=== PATIENT | male | born 1980 | race Caucasian/White ===

== ENCOUNTER 2023-04-27 05:55 | Emergency (ER) | payer MEDICAID, SELFPAY ==
[2023-04-27 06:02] VITALS: PULSE 74; RESP 18; TEMP 36.7; O2SAT 97; BMI 31.9
--- NOTE | 2023-04-27 06:11 | W.ED.ANXIETY ---
HPI - Anxiety General: Chief Complaint: Anxiety Stated Complaint: Anxiety\Cant Sleep\Dizzy Time Seen by Provider: 04/27/23 06:09 Source: patient Mode of arrival: ambulatory History of Present Illness: 42-year-old male presents to the emergency room complaining of anxiety. He was recently started on atenolol buspirone and fluoxetine 2 weeks ago. He states he has been taking those medications and feels like they are not working. He says he cannot sleep. He denies any suicidal or homicidal intent initially. Patient declines to give any specifics as to what is causing his anxiety. MD complaint: anxiety Onset (ago): week(s) History of similar episodes: Yes Provoking factors: other (Patient will not disclose) Relieving factors: nothing Associated symptoms: Reports other (Unable to sleep); Deny anorexia, chest pain, chills, confusion, diaphoresis, fever(s), headache(s), malaise, nausea, palpitations, short of breath, syncope, vomiting or weakness Review of Systems Const: Denies: fever(s), chills, malaise or diaphoresis Card: Denies: chest pain, palpitations or syncope Resp: Denies: dyspnea, productive cough or non-productive cough GI: Denies: abdominal pain, nausea or vomiting : Denies: flank pain, dysuria, urinary frequency or urinary urgency Musc: Denies: neck pain or back pain Skin/Breast: Denies: rash or pruritus Neuro: Denies: headache(s) or confusion Physical Exam Const: GENERAL APPEARANCE: comfortable ORIENTATION/CONSCIOUSNESS: Yes awake, Yes oriented to person, Yes oriented to place and Yes oriented to time HENMT: COMMON NORMALS: normocephalic, atraumatic and hearing grossly normal bilaterally HEAD & SCALP: normocephalic and atraumatic Resp: COMMON NORMALS: normal respiratory effort, No retractions, No use of accessory muscles and clear to auscultation bilaterally AUSCULTATION: clear to auscultation bilaterally Cardio: COMMON NORMALS: regular rate, regular rhythm and No murmurs present (Cardio) RATE: regular rate RHYTHM: regular rhythm GI: COMMON NORMALS: Soft to palpation and No hepatosplenomegaly present AUSCULTATION: Yes normoactive bowel sounds PALPATION: Yes Soft to palpation, No Tenderness to palpation present (GI), No Guarding due to palpation present (GI) and Yes No hepatosplenomegaly present Extremity: COMMON NORMALS: normal to inspection, capillary refill normal, no clubbing, cyanosis or edema, no calf tenderness and no pedal edema Neuro: SENSORIUM/ORIENTATION: Yes oriented to person, Yes oriented to place and Yes oriented to time Skin: COMMON NORMALS: no rashes or lesions noted GENERAL SKIN EXAM: no rashes or lesions noted Course Vital Signs: Vital signs: Vital Signs Temperature 98.1 F 04/27/23 06:02 Pulse Rate 68 04/27/23 06:42 Respiratory Rate 16 04/27/23 06:42 Blood Pressure 161/91 04/27/23 06:42 Pulse Oximetry 95 04/27/23 06:42 Oxygen Delivery Me thod Room Air 04/27/23 06:02 MDM - Anxiety Medical Decision Making Patient declines to disclose what is triggering his anxiety just simply refers to himself being as stressed out and not being able to sleep. Through the course of the conversation he admits he has been seen at other local hospitals but felt like they did not give him the medications he needed. I advised him we can give him a few days of something that would help him with anxiety in the short-term and help him with sleep he wanted to specifically know what it was when I told him it would be hydroxyzine he stated he is allergic but could not identify what reaction he had to it. To the course of the conversation he admitted he had taken hydroxyzine recently and he felt like it did not work. He did not have any reaction at that time. We had made written plans to discharge him home with Abilify 2 mg nightly to augment his current medications to continue the current medications have him establish with [facility] [place] or follow-up with the crisis unit later today. Patient states he wants to be admitted to the psychiatry unit so that he can be given medications that would knock him out so that he could sleep. Reviewed with the patient he did not meet criteria for admission. After we have printed his discharge paperwork patient now states he is suicidal. He has no specific plan or ideation. He declines to recognize the fact that earlier he had denied being suicidal. Discussed with Dr. Garcia. He does not feel patient needs to be admitted given the recent history. Urine drug screen is positive for benzodiazepines when discussed with the patient he admits he is recently been on Xanax, he states he has not had any for [address] Garcia does not feel that the patient needs to be admitted at this point and recommends instead of Abilify that we give him doxepin 50 mg nightly. Also recommend establishing with [facility] [place] or following up at the crisis stabilization unit if needed. His other option would be to follow-up with his primary care doctor for further medication adjustments. Medical Records I reviewed the patient's medical records. Lab Data I reviewed the patient's lab results. 04/27/23 06:48 04/27/23 07:21 Laboratory Results WBC 12.7 10^3/uL (4.0-10.0) H 04/27/23 06:48 RBC 5.39 10^6/uL (4.1-5.3) H 04/27/23 06:48 Hgb 17.2 g/dL (11.7-16.6) H 04/27/23 06:48 Hct 50.6 % (42.0-52.0) 04/27/23 06:48 MCV 93.9 fl (80-94) 04/27/23 06:48 MCH 31.9 pg (28.0-34.0) 04/27/23 06:48 MCHC 34.0 g/dL (30.0-36.0) 04/27/23 06:48 RDW 12.9 % (12.1-15.1) 04/27/23 06:48 Plt Count 178 10^3/cmm (130-400) 04/27/23 06:48 MPV 11.7 fL (7.4-10.4) H 04/27/23 06:48 Neut % (Auto) 83.0 % 04/27/23 06:48 Lymph % (Auto) 10.6 % 04/27/23 06:48 Love % (Auto) 4.5 % 04/27/23 06:48 Eos % (Auto) 0.6 % 04/27/23 06:48 Baso % (Auto) 0.7 % 04/27/23 06:48 Neut # (Auto) 10.52 10^3/uL (1.8-7.7) H 04/27/23 06:48 Lymph # (Auto) 1.3 10^3/uL (0.8-4.8) 04/27/23 06:48 Love # (Auto) 0.6 10^3/uL (0.2-0.9) 04/27/23 06:48 Eos # (Auto) 0.1 10^3/uL (0.0-0.8) 04/27/23 06:48 Baso # (Auto) 0.1 10^3/uL (0.0-0.1) 04/27/23 06:48 Nucleated RBC % (auto) 0 % 04/27/23 06:48 Nucleated RBCs # 0.0 /100WBC 04/27/23 06:48 Sodium Cancelled 04/27/23 06:48 Potassium Cancelled 04/27/23 06:48 Chloride Cancelled 04/27/23 06:48 Carbon Dioxide Cancelled 04/27/23 06:48 Anion Gap Cancelled 04/27/23 06:48 BUN Cancelled 04/27/23 06:48 Creatinine Cancelled 04/27/23 06:48 GFR Calculation Cancelled 04/27/23 06:48 Glucose Cancelled 04/27/23 06:48 Calculated Osmolality Cancelled 04/27/23 06:48 Calcium Cancelled 04/27/23 06:48 Total Bilirubin Cancelled 04/27/23 06:48 AST Cancelled 04/27/23 06:48 ALT Cancelled 04/27/23 06:48 Alkaline Phosphatase Cancelled 04/27/23 06:48 Total Protein Cancelled 04/27/23 06:48 Albumin Cancelled 04/27/23 06:48 Globulin Cancelled 04/27/23 06:48 Urine Color Dark yellow (Yellow) 04/27/23 06:41 Urine Appearance Clear (CLEAR) 04/27/23 06:41 Urine pH 6 (5-7) 04/27/23 06:41 Ur Specific [place] 1.010 (1.005-1.030) 04/27/23 06:41 Urine Protein Neg (Negative) 04/27/23 06:41 Urine Glucose (UA) Norm (Normal) 04/27/23 06:41 Urine Ketones Negative (Negative) 04/27/23 06:41 Urine Blood 2+ (Negative) H 04/27/23 06:41 Urine Nitrate Negative (Negative) 04/27/23 06:41 Urine Bilirubin Neg (Negative) 04/27/23 06:41 Urine Urobilinogen Norm mg/dL (Negative) 04/27/23 06:41 Ur Leukocyte Esterase Negative (Negative) 04/27/23 06:41 Urine RBC 0-4 /hpf (0-2) H 04/27/23 06:41 Urine WBC 0-4 /hpf (0-5) H 04/27/23 06:41 Ur Squamous Epith Cells 0-4 /hpf (0-5) H 04/27/23 06:41 Amorphous Sediment Not Reportable 04/27/23 06:41 Urine Bacteria Trace /hpf (NONE) 04/27/23 06:41 Urine Mucus None /hpf 04/27/23 06:41 Urine Yeast Trace /hpf 04/27/23 06:41 Urine Opiates Screen Negative ng/mL (Negative) 04/27/23 06:41 Ur Barbiturates Screen Negative ng/mL (Negative) 04/27/23 06:41 Ur Phencyclidine Scrn Negative ng/mL (Negative) 04/27/23 06:41 Ur Amphetamines Screen Negative ng/mL (Negative) 04/27/23 06:41 U Benzodiazepines Scrn Positive ng/mL (Negative) H 04/27/23 06:41 Urine Cocaine Screen Negative ng/mL (Negative) 04/27/23 06:41 U Marijuana (THC) Screen Positive ng/mL (Negative) H 04/27/23 06:41 Ethyl Alcohol Cancelled 04/27/23 06:48 Discharge Plan Discharge Patient Disposition: Home Clinical Impression: Generalized anxiety disorder Condition: Stable Prescriptions: New doxepin 50 mg capsule 50 mg PO BEDTIME Qty: 10 0RF No Action buspirone 5 mg tablet atenolol 50 mg tablet fluoxetine 20 mg capsule Discharge Orders: Discharge ED (Routine); Ordered 04/27/23 Ordered By: Tad aRmirez Discharge Diet: Usual diet Discharge Activity: Increase activity as tolerated Patient Instructions: Opioid Safety, Pain Management Activity Restrictions/Additional Instructions: Continue to take the previous prescribed medications you can take the Abilify 2 mg at at bedtime along with them. This medicine can make you drowsy at times. Strongly recommend you either establish with behavioral health clinic or follow-up with your primary care doctor for long-term management. You can go to the crisis stabilization unit later today if you wish. Coding Level of Care Code ED [employer] for Kimberly Damon
--- NOTE | 2023-04-27 06:37 | PC.NURSE ---
Patient was ready for discharge, upon giving d/c papers patient stated he is having thoughts of hurting others. Patient states he is afraid he will hurt others, does not feel that the doctors are not listening to him.
[2023-04-27 06:42] VITALS: BP 161/91; PULSE 68; RESP 16; O2SAT 95
[2023-04-27 06:58] LABS: Basophils # 0.1 10^3/uL (0.0-0.1); Basophils % 0.7 %; Eosinophils # 0.1 10^3/uL (0.0-0.8); Eosinophils % 0.6 %; Hematocrit 50.6 % (42.0-52.0); Hemoglobin 17.2 g/dL (11.7-16.6); Lymphocytes # 1.3 10^3/uL (0.8-4.8); Lymphocytes % 10.6 %; Mean Corpuscular Hemoglobin 31.9 pg (28.0-34.0); Mean Corpuscular Volume 93.9 fl (80-94); Mean Platelet Volume 11.7 fL (7.4-10.4); Monocytes # 0.6 10^3/uL (0.2-0.9); Monocytes % 4.5 %; Neutrophils # 10.52 10^3/uL (1.8-7.7); Nucleated Red Blood Cells % 0 %; Platelet Count 178 10^3/cmm (130-400); Red Blood Count 5.39 10^6/uL (4.1-5.3); Red Cell Distribution Width 12.9 % (12.1-15.1); White Blood Count 12.7 10^3/uL (4.0-10.0)
[2023-04-27 07:08] LABS: Amphetamines Screen Urine Negative (Negative); Barbiturates Screen Urine Negative (Negative); Benzodiazepines Screen Urine Positive (Negative); Cocaine Screen Urine Negative (Negative); Opiate Screen Urine Negative (Negative); PCP Screen Urine Negative (Negative); THC Screen Urine Positive (Negative)
[2023-04-27 07:11] LABS: Add Urine Microscopic? YES; Bilirubin Urine Neg (Negative); Blood Urine 2+ (Negative); Glucose Urine UA Norm (Normal); Ketones Urine Negative (Negative); Leukocyte Esterase Urine Negative (Negative); Nitrate Urine Negative (Negative); Protein Urine Neg (Negative); Urine Appearance Clear (CLEAR); Urine Color Dark Yellow (Yellow); Urobilinogen Urine Norm (Negative); pH Urine 6 (5-7)
[2023-04-27 07:19] LABS: Bacteria Urine TRACE /hpf; RBC Urine 0-4 /hpf (0-2); Squamous Epithelial Cell Urine 0-4 /hpf (0-5); WBC Urine 0-4 /hpf (0-5)
[2023-04-27 07:22] LABS: Add Urine Culture? Yes
[2023-04-27 07:48] LABS: Alanine Aminotransferase 48 U/L (0-41); Alkaline Phosphatase 116 U/L (40-130); Aspartate Amino Transferase 42 U/L (0-40); Blood Urea Nitrogen 10 mg/dL (6-20); Calcium 9.8 mg/dL (8.5-10.5); Carbon Dioxide 27 mmol/L (22-29); Chloride 93 mmol/L (98-107); Glomerular Filtration Rate 147.8 mL/min (90-130); Glucose 132 mg/dL (65-115); Osmolality Calculated 275 mOsm/kg (285-295); Sodium 132 mmol/L (136-145); Total Bilirubin 1.2 mg/dL (0.15-1.2)
[2023-04-27 07:49] LABS: Alcohol Level < 10 mg/dL (0-10); Anion Gap 16.4 (5-19); Potassium 4.4 mmol/L (3.5-5.1)
== END 2023-04-27 07:51 | disposition home or self-care (01) ==
PROVIDERS: Emergency Provider Family Medicine
DX: F41.1 Generalized anxiety disorder (principal)
CPT/HCPCS: 36415; 80053; 80306; 80307; 81001; 85025; 87086; 99283